=== PATIENT | male | born 1950 | race Caucasian/White ===

== ENCOUNTER → 2020-11-27 | Outpatient (CLI) | payer OTHER ==
[~2020-11-27] MED LIST: ASPI325 PO; ASPI81CH PO; ASPI81EC; ATOR40TA; ATOR40TA PO; CLOP75 PO; CYCL10; CYCL10 PO; HYDACE5 PO; Lopressor 25 mg25 MG PO; MULVITMINE PO; MULVITMINF PO; Prozac40 MG PO; [UNRECOGNIZED DRUG - REMARK]; [UNRECOGNIZED DRUG - REMARK]
== END | disposition home or self-care (01) ==
LOC: LAB 14:59 → LAB SHORT 14:59
DX: N39.0 Urinary tract infection, site not specified (principal)
CPT/HCPCS: 87086

== ENCOUNTER → 2021-02-19 | Outpatient (CLI) | payer OTHER | LOC: LAB SHORT 17:35 → LAB EV 17:35 | DX: R31.9 Hematuria, unspecified (principal) | CPT/HCPCS: 87086 ==

== ENCOUNTER 2022-04-20 12:47 | Day surgery (SDC) | payer OTHER ==
[~2022-04-20] VITALS: Ht 180.3 cm; Wt 70.8 kg
[~2022-04-20 12:47] MED LIST changes: -ASPI325 PO; +ASPIR 8181 M1 PO
--- NOTE | 2022-04-20 13:33 | NUR ---
PATIENT ARRIVED FOR A RESCHEDULE TAWANDA DUE TO HIM DRINKING COFFEE THIS MORNING AT 0800. RESCHEDULED PER ANESTHESIA FOR 1400. DAUGHTER CAME IN WITH THE PAITENT. PIV STARTED. PATIENT PLACED ON THE MONITOR, VVS. PATIENT STOPPED ALL MEDS EXCEPT ASPIRIN, NIBP IS HIGH. AWAITING MD ARRIVAL TO TREAT.
--- NOTE | 2022-04-20 14:56 | NUR ---
PT TRANSFERED BACK TO THE RECOVERY ROOM. PT A&Ox4. PT GIVEN APPLE JUICE PER REQUEST. PT SITTING UP IN BED.
--- NOTE | 2022-04-20 14:59 | NUR ---
TAWANDA DOCUMENTATION WAS PERFORMED IN OVER SHORT AND DAMAGE CLERK [facility] AND SCANNED INTO [employer]. SEE ANESTHESIA RECORD.
--- NOTE | 2022-04-20 15:50 | NUR ---
PT GIVEN DC INSTRUCTIONS AND VERBALIZED UNDERSTANDING. IV OUT. PT TAKEN TO LBY VIA WC W/ DAUGHTER. DAUGHTER TO TAKE PT HOME.
== END 2022-04-20 23:48 | disposition home or self-care (01) ==
LOC: MHTC 12:47
DX: I05.9 Rheumatic mitral valve disease, unspecified (principal); R23.2 Flushing; R93.1 Abnormal findings on diagnostic imaging of heart and coronary circulation; I70.0 Atherosclerosis of aorta; Z88.5 Allergy status to narcotic agent; I10 Essential (primary) hypertension; E78.5 Hyperlipidemia, unspecified; I25.10 Atherosclerotic heart disease of native coronary artery without angina pectoris; Z95.1 Presence of aortocoronary bypass graft; J44.9 Chronic obstructive pulmonary disease, unspecified
CPT/HCPCS: 93312; 93325; A9270; J2704; J7030

== ENCOUNTER 2022-05-06 10:40 | Day surgery (SDC) | payer OTHER ==
[~2022-05-06] VITALS: Ht 180.3 cm; Wt 69.4 kg
--- NOTE | 2022-05-06 16:20 | NUR ---
PT TO RECOVERY ROOM POST PROCEDURE. PT AWAKE AND CONVERSING APPROPRIATELY; REPORTS MIN DISCOMFORT L RAD SITE 1-11/20. MONITOR SR 70'S, B/P 143/102, AFEBRILE, SPO2 95% RA. L RADIAL SITE NO SWELLING/HEMATOMA, TR BAND IN PLACE; PT'S FINGERS WITH PURPLE DISCOLORATION, BUT POSITIVE PLEUTH. PT TAKING SIPS OF FLUID WITHOUT ISSUE.
--- NOTE | 2022-05-06 16:50 | NUR ---
REPORT TO YESSENIA TOBAR; ALL QUESTIONS ANSWERED.
--- NOTE | 2022-05-06 17:00 | NUR ---
assumed care of patient. removal of air from TR band started by Yumiko CASAS. patient ambulated to rest room. tolerated well.
--- NOTE | 2022-05-06 18:30 | NUR ---
PATIENT UP AND DRESSED BY SELF. LEFT RADIAL AND ULNAR SITES SOFT AND NONTENDER. NO BLEEDING NO HEMATOMA. TR BAND HAS BEEN REMOVED AND WRIST BOARD IN PLACE. ARM SLING PLACED A REMINDER NOT TO USE LEFT WRIST WITH INSTRUCTIONS FOR USE. IV SITE DCED WITH CATHETER IN TACT. PATIENT VERBALIZED UNDERSTANDING OF DISCHARGE INSTRUCTIONS AND PRECAUTIONS. NO FURTHER QUESTIONS. PATIENT TRANSFERRED VIA WHEEL CAHIR TO CAR. STEP DAUGHTER DRIVING. A REVIEW OF DISCHARGE INSTRUCTIONS GIVEN TO HER.
== END 2022-05-06 18:30 | disposition home or self-care (01) ==
LOC: MHTC 10:40
DX: T82.858A Stenosis of other vascular prosthetic devices, implants and grafts, initial encounter (principal); I77.1 Stricture of artery; I10 Essential (primary) hypertension; E78.5 Hyperlipidemia, unspecified; I25.10 Atherosclerotic heart disease of native coronary artery without angina pectoris; F17.210 Nicotine dependence, cigarettes, uncomplicated; J43.9 Emphysema, unspecified; I73.9 Peripheral vascular disease, unspecified
CPT/HCPCS: 37236; 75710; 76937; 99152; 99153; C1725; C1769; C1876; C1887; C1894; J1644; J2250; J3010; J7030; J7040; Q9967

== ENCOUNTER → 2022-05-14 | Outpatient (CLI) | payer OTHER | END | disposition home or self-care (01) | LOC: LAB SHORT 17:21 → LAB 17:21 | DX: R31.9 Hematuria, unspecified (principal) | CPT/HCPCS: 87086 ==

== ENCOUNTER 2022-05-26 13:24 | Observation (INO) | payer OTHER ==
[~2022-05-26] VITALS: Ht 182.9 cm; Wt 69.6 kg
[2022-05-26] MEDS ORDERED: ATORVASTATIN CA40 MG PO (13:42)
[2022-05-26] MEDS ORDERED: METOPROLOL SUCC25 MG PO (13:43)
[2022-05-26] MEDS ORDERED: NAPROXEN500 MG PO (13:43)
[2022-05-26 13:44] LABS: BASOPHILS ABSOLUTE AUTO 0.05 K/mm3 (0.00-0.23); BASOPHILS PERCENT AUTO 1 % (0-2); EOSINOPHILS ABSOLUTE AUTO 0.28 K/mm3 (0.00-0.68); EOSINOPHILS PERCENT AUTO 3 % (0-6); Hematocrit 47.9 % (37.0-53.0); Hemoglobin 16.3 g/dL (13.5-17.5); IMMATURE GRAN ABSOLUTE AUTO 0.03 K/mm3 (0.00-0.10); IMMATURE GRAN PERCENT AUTO 0 % (0-1); LYMPHOCYTES ABSOLUTE AUTO 1.62 K/mm3 (0.84-5.20); LYMPHOCYTES PERCENT AUTO 19 % (21-46); MONOCYTES ABSOLUTE AUTO 0.96 K/mm3 (0.16-1.47); MONOCYTES PERCENT AUTO 11 % (4-13); Mean Corpuscular HGB 31.2 pg (26.0-34.0); Mean Corpuscular Volume 92 fL (80-100); NEUTROPHILS PERCENT AUTO 66 % (41-73); Platelet Count 154 K/mm3 (150-400); RDW Coefficient Variation 12.8 % (11.7-14.2); RDW Standard Deviation 43.3 fL (35.1-46.3); Red Blood Cell Count 5.23 M/mm3 (4.30-5.90); White Blood Cell Count 8.74 K/mm3 (4.00-11.30)
[2022-05-26 14:10] LABS: Albumin, Blood 3.2 g/dL (3.4-5.0); Albumin/Globulin Ratio 0.8 (0.8-1.8); Bilirubin, Total 0.4 mg/dL (0.1-1.0); Bun/Creatinine Ratio 17.5 (12.0-20.0); Calcium, Blood 9.2 mg/dL (8.5-10.1); Creatinine, Blood 1.03 mg/dL (0.60-1.20); Globulin, Blood 3.9 g/dL (2.2-4.0); Potassium, Blood 3.6 mmol/L (3.5-5.5); Total Protein, Blood 7.1 g/dL (6.4-8.2)
--- NOTE | 2022-05-26 18:43 | NUR ---
LATE ENTRY/ER ADMIT 1720: RFECEIVED REPORT FROM CONTENT STRATEGIST. PT ARRIVED TO FLOOR AT 1720 VIA W/C. PT PUT HIMSELF IN BED, MADE COMFORTABLE, ORIENTED TO ROOM & UNIT ROUTINE. ADMIT DONE. PT A&O X 4. VSS. TELEMETRY PLACED, NSR HR 70'S. 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 NO DEFICITS NOTED. SPEECH IS CLEAR NOT SLURRED OR GARBLED. BILAT EXTREMITY STRENTGH IS NORMAL. PT IS INDEPENDENT FOR MOBILITY. IS PLEASANT & COOPERATIVE. IS HUNGRY AND ASKING FOR DINNER.
[2022-05-27 04:44] LABS: BASOPHILS ABSOLUTE AUTO 0.04 K/mm3 (0.00-0.23); BASOPHILS PERCENT AUTO 1 % (0-2); EOSINOPHILS ABSOLUTE AUTO 0.53 K/mm3 (0.00-0.68); EOSINOPHILS PERCENT AUTO 7 % (0-6); Hematocrit 44.4 % (37.0-53.0); Hemoglobin 15.2 g/dL (13.5-17.5); IMMATURE GRAN ABSOLUTE AUTO 0.01 K/mm3 (0.00-0.10); IMMATURE GRAN PERCENT AUTO 0 % (0-1); LYMPHOCYTES ABSOLUTE AUTO 1.57 K/mm3 (0.84-5.20); LYMPHOCYTES PERCENT AUTO 20 % (21-46); MONOCYTES PERCENT AUTO 14 % (4-13); Mean Corpuscular HGB 31.1 pg (26.0-34.0); Mean Corpuscular HGB Conc 34.2 g/dL (31.5-36.5); Mean Corpuscular Volume 91 fL (80-100); Mean Platelet Volume 11.5 fL (9.1-12.4); NEUTROPHILS ABSOLUTE AUTO 4.45 K/mm3 (1.96-9.15); NEUTROPHILS PERCENT AUTO 58 % (41-73); Platelet Count 146 K/mm3 (150-400); RDW Coefficient Variation 12.8 % (11.7-14.2); RDW Standard Deviation 42.6 fL (35.1-46.3); Red Blood Cell Count 4.89 M/mm3 (4.30-5.90)
--- NOTE | 2022-05-27 05:07 | NUR ---
SUMMARY PT HAD NO NEURO DEFICITS NOTED DURING SHIFT. PT HAD NO SLURRED SPPEECH. PT HAS DENIED HEADACHE OR DIZZINESS. PT HTN TREATED PER EMAR. PT DENIES SOB OR CX DISCOMFORT. PT HAS SLEPT WELL DURING SHIFT. PT CURRENTLY SLEEPING AND IN NO DISTRESS. CALL LIGHT IN REACH.
[2022-05-27 05:18] LABS: Albumin, Blood 2.9 g/dL (3.4-5.0); Albumin/Globulin Ratio 0.8 (0.8-1.8); Bilirubin, Total 0.4 mg/dL (0.1-1.0); Bun/Creatinine Ratio 25.6 (12.0-20.0); Calcium, Blood 8.8 mg/dL (8.5-10.1); Creatinine, Blood 0.78 mg/dL (0.60-1.20); Globulin, Blood 3.6 g/dL (2.2-4.0); Potassium, Blood 3.8 mmol/L (3.5-5.5); Thyroid Stimulating Hormone 2.34 uIU/mL (0.360-4.800); Total Protein, Blood 6.5 g/dL (6.4-8.2)
--- NOTE | 2022-05-27 08:47 | NUR ---
NEURO PT DENIES ANY NEURO DEFICTS THIS AM. 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 LEGS EQUAL AND STRONG. PUPILS BRISK AND REACTIVE. EYES TRACT , SMILE SYMETRICAL
[2022-05-27] MEDS ORDERED: AMLO10 PO (13:51)
[2022-05-27] MEDS ORDERED: ELIQUIS5 M2 PO (13:51)
--- NOTE | 2022-05-27 15:30 | NUR ---
PT DISCHARGED THE PT VERBALIZED UNDERSTANDING OF THE DC INSTRUCTIONS. THE PTS PRESCRIPRTION WAS FAXED TO THE PHARMACY. PT WAS REMINDED TO FOLLOW UP WITH HIS PCP. THE PT APPEARED TO BE BREATHING EASILY ON RA. THE PT WAS TRANSFERED VIA WHEELCHAIR ACCOMPANIED BY THE RESEARCH STATISTICIAN AND A FAMILY MEMBER
== END 2022-05-27 15:25 | disposition home or self-care (01) ==
LOC: ER 13:24 → MEDS 13:25
PROVIDERS: Emergency Medicine; ADMIT Internal Medicine
DX: G45.9 Transient cerebral ischemic attack, unspecified (principal); F17.200 Nicotine dependence, unspecified, uncomplicated; I45.19 Other right bundle-branch block; J44.9 Chronic obstructive pulmonary disease, unspecified; I10 Essential (primary) hypertension; I49.1 Atrial premature depolarization; E78.5 Hyperlipidemia, unspecified; I25.10 Atherosclerotic heart disease of native coronary artery without angina pectoris; L40.9 Psoriasis, unspecified; Z95.828 Presence of other vascular implants and grafts; Z88.5 Allergy status to narcotic agent; Z88.8 Allergy status to other drugs, medicaments and biological substances; Z95.1 Presence of aortocoronary bypass graft
CPT/HCPCS: 36415; 70450; 71045; 80053; 82947; 84443; 85025; 93005; 93010; 96372; 99285-25; A9270; G0378; J1650

== ENCOUNTER → 2022-07-21 | Outpatient (CLI) | payer OTHER ==
[~2022-07-21] MED LIST changes: +AMLO10 PO; +ASPI325 PO; +ATORVASTATIN CA40 MG PO; +ELIQUIS5 M2 PO; +METOPROLOL SUCC25 MG PO; +NAPROXEN500 MG PO
== END | disposition home or self-care (01) ==
LOC: LAB SHORT 16:55 → LAB 16:55
DX: N39.0 Urinary tract infection, site not specified (principal)
CPT/HCPCS: 87086; 87184; 87186

== ENCOUNTER 2024-03-14 10:54 | Day surgery (SDC) | payer OTHER ==
[~2024-03-14] VITALS: Ht 180.3 cm; Wt 66.7 kg
[2024-03-14] VITALS (9 sets, daily range): BP systolic 109–146; BP diastolic 46–123
[~2024-03-14 10:54] MED LIST changes: +Crestor20 MG PO; +FINA5 PO; +IPRATROPIUM BRO15 ML; +LOSA50 PO; +METO50ER PO; -METOPROLOL SUCC25 MG PO
[2024-03-14] MEDS ORDERED: NS 250 ML IV ONE ×2 (11:12→12:18)
[2024-03-14] MEDS ORDERED: Heparin Sodium 1000 Units/ML 10ML MDV ONE ×2 (11:12→14:44)
[2024-03-14] MEDS ORDERED: NS 1,000 ML IV ONE (11:12)
[2024-03-14] MEDS ORDERED: Lactated Ringer's 1,000 ML IV ONE (12:03)
--- NOTE | 2024-03-14 12:12 | NUR ---
PT KAMALA IN TO SEE PT. PT UP TO BR. STEADY ON FEET.
[2024-03-14] MEDS ORDERED: FentaNYL Citrate 50 MCG/ML 2 ML Injection ONE (13:33)
[2024-03-14] MEDS ORDERED: Nitroglycerin 2 MG/20 ML BTL ONE (14:42)
--- NOTE | 2024-03-14 15:45 | NUR ---
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 s/p anesthesia. pt. vss upon return to recover. pt restless upon awakening, needing frequent reminder to keep leg straight and remain supine. pt. right groin site wnl upon arrival to unit, soft no oozing or hematoma. frequent reassessment and site remain unchanged from intital assessment. DP and PT obtained to left foot via doppler. Right foot remains unchanged from previous assessment with only DP via doppler.
[2024-03-14] MEDS ORDERED: ePHEDrine Sulfate 50 MG/ML 1ML Injection XX ONE (16:17)
[2024-03-14] MEDS ORDERED: Propofol 10mg/ml 20 ml Vial (Procedural) IV ONE (16:17)
[2024-03-14] MEDS ORDERED: Etomidate 2MG / ML 10ML Vial XX ONE (16:17)
[2024-03-14] MEDS ORDERED: Glycopyrrolate 0.2 MG/ML 5ML VIAL XX ONE (16:17)
--- NOTE | 2024-03-14 17:35 | NUR ---
PT sitting up in bed, alert and oriented at this time. snacks and water provdied. pt up to bathroom to ambulate. right groin site remains unchanged. soft no oozing or hematoma. discharge instructions reviewed in detail. pt verbalized understanding. pt. step daughter to drive pt home. Ivs removed catheters intact. pt vss at this time. no new medications. plan for pt to return for r leg angiogram.
[2024-03-15] MEDS ORDERED: LEVO750 PO (01:52)
== END 2024-03-14 23:16 | disposition home or self-care (01) ==
LOC: MHTC 10:54
DX: I70.223 Atherosclerosis of native arteries of extremities with rest pain, bilateral legs (principal); I25.10 Atherosclerotic heart disease of native coronary artery without angina pectoris; I10 Essential (primary) hypertension; E78.5 Hyperlipidemia, unspecified; J44.9 Chronic obstructive pulmonary disease, unspecified; F17.210 Nicotine dependence, cigarettes, uncomplicated; Z88.5 Allergy status to narcotic agent; Z88.8 Allergy status to other drugs, medicaments and biological substances; N39.0 Urinary tract infection, site not specified; E86.0 Dehydration; R33.9 Retention of urine, unspecified; N40.0 Benign prostatic hyperplasia without lower urinary tract symptoms; Z79.82 Long term (current) use of aspirin; Z79.899 Other long term (current) drug therapy; Z88.6 Allergy status to analgesic agent
CPT/HCPCS: 51702; 51798; 76937; 80053; 81001; 85025; 85347; 87086; 99283; A9270; C1714; C1725; C1753; C1760; C1769; C1887; C1894; C2623; J1644; J2704; J3010; J7030; J7050; J7120; Q9967

== ENCOUNTER 2024-03-14 21:29 | Emergency (ER) | payer OTHER ==
[~2024-03-14] VITALS: Ht 182.9 cm; Wt 65.3 kg
[2024-03-15 00:39] LABS: Source, Urine Clean Catch
[2024-03-15] MEDS ORDERED: NS 1,000 ML IV SCH (00:40)
[2024-03-15] MEDS ORDERED: Tamsulosin HCl 0.4 MG Cap PO ONE (00:40)
[2024-03-15 00:41] LABS: Bilirubin, Urine Neg (Neg); Blood, Urine 3+ (Neg); Glucose Qualitative, Urine Neg (Neg); Ketones, Urine Neg (Neg); Leukocyte Esterase, Urine 1+ (Neg); Nitrite, Urine Neg (Neg); Protein, Urine 2+ (Neg); Urobilinogen, Urine NORM (Normal)
[2024-03-15 01:00] VITALS: BP 108/76
[2024-03-15 01:14] LABS: Appearance, Urine Clear (Clear); Color, Urine Yellow (P-Yellow)
[2024-03-15 01:16] LABS: Amorphous Light (0-Heavy); Bacteria Mod /hpf; Mucus Light (0-Heavy); Squamous Epithelial Cells Few /hpf (Few)
[2024-03-15 01:20] LABS: BASOPHILS ABSOLUTE AUTO 0.04 K/mm3 (0.00-0.23); BASOPHILS PERCENT AUTO 0 % (0-2); EOSINOPHILS ABSOLUTE AUTO 0.18 K/mm3 (0.00-0.68); EOSINOPHILS PERCENT AUTO 1 % (0-6); Hematocrit 44.5 % (37.0-53.0); Hemoglobin 15.2 g/dL (13.5-17.5); IMMATURE GRAN ABSOLUTE AUTO 0.05 K/mm3 (0.00-0.10); IMMATURE GRAN PERCENT AUTO 0 % (0-1); LYMPHOCYTES ABSOLUTE AUTO 0.83 K/mm3 (0.84-5.20); LYMPHOCYTES PERCENT AUTO 6 % (21-46); MONOCYTES PERCENT AUTO 8 % (4-13); Mean Corpuscular HGB 31.8 pg (26.0-34.0); Mean Corpuscular HGB Conc 34.2 g/dL (31.5-36.5); Mean Corpuscular Volume 93 fL (80-100); Mean Platelet Volume 10.4 fL (9.1-12.4); NEUTROPHILS ABSOLUTE AUTO 10.97 K/mm3 (1.96-9.15); NEUTROPHILS PERCENT AUTO 84 % (41-73); Platelet Count 129 K/mm3 (150-400); RDW Coefficient Variation 12.5 % (11.7-14.2); Red Blood Cell Count 4.78 M/mm3 (4.30-5.90); White Blood Cell Count 13.07 K/mm3 (4.00-11.30)
[2024-03-15 01:36] LABS: Albumin, Blood 3.3 g/dL (3.4-5.0); Albumin/Globulin Ratio 0.9 (0.8-1.8); Bilirubin, Total 0.5 mg/dL (0.1-1.0); Bun/Creatinine Ratio 21.2 (12.0-20.0); Calcium, Blood 9.2 mg/dL (8.5-10.1); Creatinine, Blood 1.04 mg/dL (0.60-1.20); Globulin, Blood 3.5 g/dL (2.2-4.0); Total Protein, Blood 6.8 g/dL (6.4-8.2)
[2024-03-15] MEDS ORDERED: LevoFLOXacin 750 MG Tab PO ONE (01:50)
[2024-03-15] MEDS ORDERED: LEVO750 PO (01:52)
== END 2024-03-15 02:34 | disposition home or self-care (01) ==
LOC: ER 21:29
PROVIDERS: Emergency Medicine
DX: N39.0 Urinary tract infection, site not specified (principal); E86.0 Dehydration; R33.9 Retention of urine, unspecified; N40.0 Benign prostatic hyperplasia without lower urinary tract symptoms; F17.210 Nicotine dependence, cigarettes, uncomplicated; I10 Essential (primary) hypertension; E78.5 Hyperlipidemia, unspecified; J44.9 Chronic obstructive pulmonary disease, unspecified; Z46.6 Encounter for fitting and adjustment of urinary device; Z79.82 Long term (current) use of aspirin; Z79.899 Other long term (current) drug therapy; Z88.8 Allergy status to other drugs, medicaments and biological substances; Z88.5 Allergy status to narcotic agent; Z88.6 Allergy status to analgesic agent
CPT/HCPCS: 51702; 51798; 80053; 81001; 85025; 87086; 99283; A9270; J7030

== ENCOUNTER → 2024-03-18 | Outpatient (CLI) | payer OTHER ==
[~2024-03-18] MED LIST changes: +LEVO750 PO; +NICO21TP TOP
== END ==
LOC: LAB 13:38 → LAB SHORT 13:38
DX: N39.0 Urinary tract infection, site not specified (principal)
CPT/HCPCS: 87086

== ENCOUNTER → 2024-03-20 | Outpatient (CLI) | payer OTHER | LOC: LAB 16:41 → LAB SHORT 16:41 | DX: N39.0 Urinary tract infection, site not specified (principal); Z96.0 Presence of urogenital implants | CPT/HCPCS: 87086 ==

== ENCOUNTER 2024-03-27 16:12 | Inpatient (IN) | payer OTHER ==
[~2024-03-27] VITALS: Ht 182.9 cm; Wt 64.7 kg
[~2024-03-27 16:12] MED LIST changes: -NICO21TP TOP
[2024-03-27 16:43] VITALS: BP 150/92
[2024-03-27] MEDS ORDERED: FentaNYL Citrate 50 MCG/ML 2 ML Injection IV PRN (17:20)
[2024-03-27 17:41] LABS: Hematocrit 46.1 % (37.0-53.0); Hemoglobin 15.7 g/dL (13.5-17.5); Mean Corpuscular HGB 31.7 pg (26.0-34.0); Mean Corpuscular HGB Conc 34.1 g/dL (31.5-36.5); Mean Corpuscular Volume 93 fL (80-100); Mean Platelet Volume 9.7 fL (9.1-12.4); Platelet Count 217 K/mm3 (150-400); RDW Coefficient Variation 12.5 % (11.7-14.2); RDW Standard Deviation 42.9 fL (35.1-46.3); Red Blood Cell Count 4.96 M/mm3 (4.30-5.90)
[2024-03-27 17:55] LABS: Anti-Xa UFH, PHA Monitoring <0.10 IU/mL; International Normalized Ratio 0.96; Prothrombin Time Results 10.3 Sec (9.7-11.5)
[2024-03-27] MEDS ORDERED: Dose Adjust by Pharmacy XX STA (18:08)
[2024-03-27] MEDS ORDERED: Heparin Sodium,Porcine/0.5 NS 500 ML IV SCH (18:10)
[2024-03-27 18:12] LABS: Albumin, Blood 3.2 g/dL (3.4-5.0); Albumin/Globulin Ratio 0.7 (0.8-1.8); Bilirubin, Total 0.3 mg/dL (0.1-1.0); Bun/Creatinine Ratio 17.4 (12.0-20.0); Calcium, Blood 8.7 mg/dL (8.5-10.1); Creatinine, Blood 1.15 mg/dL (0.60-1.20); Globulin, Blood 4.3 g/dL (2.2-4.0); Potassium, Blood 4.3 mmol/L (3.5-5.5); Total Protein, Blood 7.5 g/dL (6.4-8.2)
[2024-03-27 19:25] VITALS: BP 117/63
--- NOTE | 2024-03-27 21:31 | NUR ---
PATIENT REPORTING DIFFICULTY FALLING ASLEEP. REQUESTING MELATONIN TO HELP. MD LOPES CONTACTED. ORDER RECEIVED. MD TO PLACE ORDER. WILL ADMINISTER PER EMAR.
[2024-03-27] MEDS ORDERED: Melatonin 5 MG Tablet PO SCH (22:00)
[2024-03-27 23:12] VITALS: BP 116/63
[2024-03-28] VITALS (11 sets, daily range): BP systolic 118–142; BP diastolic 17–82
[2024-03-28 01:21] LABS: Hematocrit 40.1 % (37.0-53.0); Hemoglobin 13.5 g/dL (13.5-17.5); Mean Corpuscular HGB 31.3 pg (26.0-34.0); Mean Corpuscular HGB Conc 33.7 g/dL (31.5-36.5); Mean Corpuscular Volume 93 fL (80-100); Mean Platelet Volume 9.6 fL (9.1-12.4); Platelet Count 188 K/mm3 (150-400); RDW Coefficient Variation 12.4 % (11.7-14.2); RDW Standard Deviation 43.3 fL (35.1-46.3); Red Blood Cell Count 4.31 M/mm3 (4.30-5.90); White Blood Cell Count 10.11 K/mm3 (4.00-11.30)
[2024-03-28] MEDS ORDERED: Clarify Drug Order XX ONE (01:45)
--- NOTE | 2024-03-28 04:26 | NUR ---
SHIFT SUMMARY THIS RN ASSUMED CARE AT APPROX 1915. NO ACUTE EVENTS OVERNIGHT. PATIENT ALERT AND ORIENTED X4. PERRLA. MOVES ALL EXTREMITIES EQUALLY. L LEG ISCHEMIA - PPP FAINT/THREADY, COOL TO TOUCH. DENIES PAIN. NPO SINCE MIDNIGHT FOR POSSIBLE LE ANGIO TODAY. VSS. TELEMETRY SHOWING SINUS/SINUS LUIZ 40s-60s. DENIES CHEST PAIN, PRESSURE. HEPARIN GTT INFUSING PER EMAR. ON ROOM AIR T/O, SATs >90%. RESPIRATIONS EVEN, UNLABORED. REPOSITIONS HIMSELF INDEPENDENTLY IN BED. IS A SBA WITH MOBILITY FOR LINE, DEVICE MANAGEMENT. CALL LIGHT IN REACH. WILL CONTINUE TO MONITOR AND REPORT TO ONCOMING RN.
[2024-03-28] MEDS ORDERED: Dose Adjust by Pharmacy XX STA (08:41)
[2024-03-28] MEDS ORDERED: Finasteride 5 MG Tab PO SCH (09:00)
[2024-03-28] MEDS ORDERED: Losartan Potassium 50 MG Tab PO SCH (09:00)
[2024-03-28] MEDS ORDERED: Nicotine 21 MG PATCH TOP SCH (09:00)
[2024-03-28] MEDS ORDERED: AmLODIPine Besylate 5 MG Tab PO SCH (09:00)
[2024-03-28] MEDS ORDERED: Rosuvastatin Calcium 10 MG Tab PO SCH (09:00)
[2024-03-28] MEDS ORDERED: Aspirin 325 MG Tab PO SCH (09:00)
[2024-03-28] MEDS ORDERED: Metoprolol Succinate 50 MG TABCR PO SCH (09:00)
[2024-03-28] MEDS ORDERED: NS 1,000 ML IV ONE (09:02)
[2024-03-28] MEDS ORDERED: Heparin Sodium 1000 Units/ML 10ML MDV ONE ×2 (09:02→10:06)
[2024-03-28] MEDS ORDERED: NS 250 ML IV ONE (09:02)
[2024-03-28] MEDS ORDERED: FentaNYL Citrate 50 MCG/ML 2 ML Injection ONE ×3 (09:38→12:28)
[2024-03-28] MEDS ORDERED: Rocuronium Bromide 10 MG/ML 5ML Injection IV ONE (09:38)
[2024-03-28] MEDS ORDERED: Phenylephrine HCl 10mg/ml 1 ml Vial ONE (09:39)
[2024-03-28] MEDS ORDERED: Phenylephrine HCl 100 MCG/ML-NS 10MLSYR (1MG/10ML) ONE (09:39)
[2024-03-28] MEDS ORDERED: Sugammadex Sodium 200 MG/2ML SDV (100 MG/ML) ONE (09:39)
[2024-03-28] MEDS ORDERED: SuccINYLCHOLINE Chloride 100 MG/5 ML 5MLSYR ONE (09:39)
[2024-03-28] MEDS ORDERED: Dexamethasone Sod Phos 10 MG/ML 1ML VIAL ONE (09:39)
[2024-03-28] MEDS ORDERED: Ondansetron HCl 2 MG / ML 2ML Vial ONE (09:39)
[2024-03-28] MEDS ORDERED: Lactated Ringer's 1,000 ML IV ONE (09:42)
--- NOTE | 2024-03-28 12:45 | NUR ---
PT ALERT AND ORIENTED. SITE REMAINS WNL, SOFT NON TENDER, NO HEMATOMA. PT. REPORTS PAIN 10/10 TO BILAT INNER THIGHS AND LOWER BACK. ASSISTED PT TO REPOSITION IN BED, RIGHT GROIN ASSESSED AFTER REPOSITIONING AND REMAINS UNCHANGED. PT VSS REMAIN STABLE, BRADYCARDIC BUT THIS IS NOT NEW TO PT. DR. WRAY NOTIFIED OF CONTINUED PAIN. PT CLENCHING FISTS AND TENSE IN BED. MED WITH FENTNAYL 25MCG PER EMAR/ DOC ORDERS. PT. TAKEN BACK TO PCU, BEDSIDE REPORT TO PAO CASAS. PT REPORTS PAIN STILL CONTINUES HOWEVER FISTS NO LONGER CLENCHED AND NO LONGER RESTLESS IN BED.
[2024-03-28] MEDS ORDERED: NICO21TP TOP (16:56)
[2024-03-28] MEDS ORDERED: CLOP75 PO (16:57)
--- NOTE | 2024-03-28 18:08 | NUR ---
SHIFT SUMMARY; ASSUMED CARE AT 0700. A/A/OX4 INDEPENDANT IN ROOM. TAKEN TO TINSMITH APPRENTICE FOR REVASC OF LEFT LEG. RIGHT GROIN SITE WITH ANGIO SEAL. RECOVERED PER ORDERS. SITE SOFT AND NON BRUISED, NO SWELLING. AFTER RECOVERY DC'D WITH DAUGHTER. RX SENT TO [facility], VERBALIZES UNDERSTANDING OF TAKING PLAVIX. STATES WILL NOT STOP SMOKING, UNDERSTANDS RISKS. DC'D VIA WHEELCHAIR IN NO ACUTE DISTRESS.
== END 2024-03-28 17:45 | disposition home or self-care (01) | DRG 254 ==
LOC: PCU 16:12
PROVIDERS: ADMIT Internal Medicine
PROC: 047K3D1 Dilation of Right Femoral Artery with Intraluminal Device, using Drug-Coated Balloon, Percutaneous Approach (ICD-10-PCS; principal; 2024-03-28)
PROC: 047M3D1 Dilation of Right Popliteal Artery with Intraluminal Device, using Drug-Coated Balloon, Percutaneous Approach (ICD-10-PCS; 2024-03-28)
PROC: 047C3ZZ Dilation of Right Common Iliac Artery, Percutaneous Approach (ICD-10-PCS; 2024-03-28)
DX: I70.223 Atherosclerosis of native arteries of extremities with rest pain, bilateral legs (principal); I25.10 Atherosclerotic heart disease of native coronary artery without angina pectoris; J44.9 Chronic obstructive pulmonary disease, unspecified; I10 Essential (primary) hypertension; E78.5 Hyperlipidemia, unspecified; Z95.1 Presence of aortocoronary bypass graft; F17.210 Nicotine dependence, cigarettes, uncomplicated; Z88.8 Allergy status to other drugs, medicaments and biological substances; Z88.5 Allergy status to narcotic agent; Z79.899 Other long term (current) drug therapy; Z79.82 Long term (current) use of aspirin; K21.9 Gastro-esophageal reflux disease without esophagitis; M19.90 Unspecified osteoarthritis, unspecified site; Z86.73 Personal history of transient ischemic attack (TIA), and cerebral infarction without residual deficits
CPT/HCPCS: 36415; 37220; 37226; 75716; 75774; 76937; 80053; 82947; 85027; 85520; 85610; 85730; 94762; A9270; C1725; C1760; C1769; C1874; C1887; C1894; C2623; J0330; J1100; J1644; J2371; J2405; J3010; J7030; J7050; J7120; Q9967

== ENCOUNTER → 2025-06-13 | Outpatient (CLI) | payer OTHER ==
[~2025-06-13] MED LIST changes: +NICO21TP TOP
== END ==
LOC: LAB 16:12 → LAB SHORT 16:12
DX: N39.0 Urinary tract infection, site not specified (principal); R30.0 Dysuria
CPT/HCPCS: 87086